=== PATIENT | male | born 1990 | race Caucasian/White ===

== ENCOUNTER 2017-10-03 10:56 | Emergency (ER) | payer SELFPAY ==
[~2017-10-03] VITALS: Ht 177.8 cm; Wt 65.0 kg
[~2017-10-03 10:56] MED LIST: AMOX500T PO; HYDR-3111 PO; OFLO.3%A LEFT EAR
[2017-10-03 11:02] VITALS: BP 128/75; PULSE 61; RESP 16; TEMP 97.5; O2SAT 99
[2017-10-03] MEDS ORDERED: KETOROLAC TROMETHAMINE 60 MG/2 ML (IM) VIAL IM ONE (11:30)
[2017-10-03] MEDS ORDERED: NABU1TAB37 PO (11:35)
--- NOTE | 2017-10-03 11:35 | PD ---
HPI . Fall Chief Complaint: Fall Time Seen by Provider: 11:20 Travel History International Travel<30 days: No Contact w/Intl Traveler<30days: No Traveled to known affect area: No History of Present Illness HPI Patient presents for evaluation of injury sustained in a fall. He fell 3 days ago. He states that his feet flew out from under him and he landed flat on his back. He has had pain in the left rib cage since that time. His pain has been getting progressively worse. Pain is exacerbated by deep respirations and movement. He has not tried anything [id number] for his pain. He rates the pain 10/10. PFSH Past Medical History ADHD: No Depression: Yes Cancer: No Cardiovascular Problems: No Diabetes: No (FAMILY HX) Diminished Hearing: No Glaucoma: No Hepatitis: No Hiatal Hernia: No Psychiatric: Yes (DEPRESSION/ANGER ISSUES BY HX) Respiratory: No Immunizations Current: Yes Migraines: Yes (BY HX) Seizures: No Thyroid Disease: No Ulcer: No Past Surgical History Appendectomy: No Cholecystectomy: No Oral Surgery: Yes (SEVERAL TEETH EXTRACTED ) Other Surgery: Yes Social History Alcohol Use: Yes (OCCASIONAL) Tobacco Use: Yes (1 PPD) Substance Use: Yes (MARIJUANA OCCASSIONALLY) Allergies-Medications (Allergen,Severity, Reaction): Coded Allergies: No Known Allergies (Verified , 04/28/15) Reported Meds & Prescriptions Reported Meds & Active Scripts Active Nabumetone 500 Mg Tab 500 Mg PO BID Review of Systems Except as stated in HPI: all other systems reviewed are Neg General / Constitutional: No: Fever, Chills Cardiovascular: Positive: Chest Pain or Discomfort Respiratory: Positive: Other, No: Shortness of Breath Gastrointestinal: No: Nausea, Vomiting, Diarrhea Genitourinary: No: Hematuria Physical Exam Narrative GENERAL: Awake and alert and in no acute distress. SKIN: Warm and dry. No bruises or abrasions noted. HEAD: Normocephalic/atraumatic. EYES: Pupils are equal. Extraocular movements are intact. NECK: Normal range of motion. CARDIOVASCULAR: Regular rate and rhythm. Heart sounds are normal. RESPIRATORY: Nonlabored respirations. Full and equal breath sounds. Tenderness to palpation of the left posterior rib cage at about rib 10. No crepitus palpated. MUSCULOSKELETAL: Atraumatic. NEUROLOGICAL: Nonfocal. PSYCHIATRIC: Appropriate mood and affect. Data Data Last Documented VS Vital Signs Date Time Temp Pulse Resp B/P (MAP) Pulse Ox O2 Delivery O2 Flow Rate FiO2 10/03/17 11:02 97.5 61 16 128/75 (92) 99 Orders Orders Ribs, Uni (W/Exp Cxr-Min 3vw) (10/03/17 11:26) Ketorolac Inj (Toradol Inj) (10/03/17 11:30) MDM Medical Decision Making Medical Screen Exam Complete: Yes Emergency Medical Condition: Yes Differential Diagnosis Differential diagnosis of chest trauma includes but is not limited to superficial abrasions/contusions, rib fracture, pneumothorax, hemothorax, pulmonary contusion, cardiac contusion, ruptured thoracic aorta Narrative Course This patient presents 3 days after a fall flat on his back complaining with left posterior rib pain. He has full and equal breath sounds. Rib x-rays are pending. Rib films are negative for fracture. There is no pneumothorax. This patient is stable for discharge to home. Diagnosis Primary Impression: Contusion of rib on left side Qualified Codes: S20.212A - Contusion of left front wall of thorax, initial encounter Patient Instructions: General Instructions, Rib Contusion (ED) Med/Other Pt SpecificInfo: Prescription(s) given Scripts Nabumetone (Nabumetone) 500 Mg Tab 500 MG PO BID for Pain-Inflammation, #60 TAB 0 Refills Prov: Yesi Ch MD 10/03/17 Disposition: 01 DISCHARGE HOME Condition: Stable Yesi Ch MD Oct 03, 2017 11:35
--- NOTE | 2017-10-03 12:32 | RADRPT ---
EXAM DATE/TIME: 10/03/2017 11:40 [facility] COMPARISON: No previous studies available for comparison. INDICATIONS : Fell 3-4 days ago. MEDICAL HISTORY : History of bilateral rib fractures. SURGICAL HISTORY : None. ENCOUNTER: Initial ACUITY: 3 days PAIN SCORE: 10/10 LOCATION: Left chest lower ribs FINDINGS: Multiple views of the left ribs were performed. There is no evidence of displaced fracture. No dest ructive lesions or areas of periosteal thickening are seen. Expiratory view of the chest is negative for pneumothorax. The mediastinal structures are midline. CONCLUSION: Negative for pneumothorax. Negative for rib fracture. Estevan North MD FACR on October 03, 2017 at 12:30 Board Certified Radiologist. This report was verified electronically.
== END 2017-10-03 12:52 | disposition home or self-care (01) ==
LOC: NEPD 10:56
DX: S20.212A Contusion of left front wall of thorax, initial encounter (principal); W19.XXXA Unspecified fall, initial encounter; F32.9 Major depressive disorder, single episode, unspecified; F17.200 Nicotine dependence, unspecified, uncomplicated
CPT/HCPCS: 71101; 96372; 99283; J1885